=== PATIENT | male | born 1980 | race Caucasian/White ===

== ENCOUNTER 2018-09-12 22:55 | Observation (INO) | payer SELFPAY ==
[~2018-09-12 22:55] MED LIST: ISOVUE-370 76%-LOCM 1 ML ONE
[2018-09-12 23:17] LABS: #Basophils 0.1 thou/uL (0.0-0.2); #Eosinphils 0.2 thou/uL (0.0-0.7); #Lymphocytes 3.1 thou/uL (1.20-3.40); #Monocytes 0.4 thou/uL (0.11-0.59); #Neutrophils 3.4 thou/uL (1.40-6.50); %Basophils 1.5 % (0.0-1.0); %Eosinophils 2.4 % (0.0-10.0); %Lymphocytes 43.5 % (21.0-51.0); %Neutrophils 47.6 % (42.0-75.0); Hemoglobin 15.8 g/dL (14.0-18.0); Mean Corpuscular HGB CONC 33.6 g/dL (32.0-36.0); Mean Corpuscular Hemoglobin 33.4 pg (27.0-31.0); Mean Corpuscular Volume 99.4 fL (78.0-98.0); Mean Platelet Volume 5.4 fL (7.4-10.4); Platelet Count 322 thou/uL (130-400); RBC Distribution Width 11.4 % (11.5-14.5); Red Blood Cell (RBC) Count 4.73 mill/uL (4.70-6.10); White Blood Cell (WBC) Count 7.2 thou/uL (4.8-10.8)
[2018-09-12 23:24] LABS: INR-International Normal Ratio 0.9; PTT 32.1 SEC (22.9-36.1); Prothrombin Time 12.2 SEC (12.0-14.7)
[2018-09-12 23:37] LABS: ALT (SGPT) 45 U/L (8-55); AST (SGOT) 41 U/L (5-34); Albumin 4.5 g/dL (3.5-5.0); Alcohol 256 mg/dL (Less than 10); Alkaline Phosphatase 88 U/L (40-150); Anion Gap 15 mmol/L (10-20); BUN (Urea Nitrogen) Less than 4 mg/dL (8.9-20.6); Bilirubin, Total 0.4 mg/dL (0.2-1.2); Calc. Creatinine Clearance 0 mL/min (70-130); Carbon Dioxide 22 mmol/L (22-29); Chloride 96 mmol/L (98-107); Estimated GFR-MDRD Greater than 90; Globulin 2.6 g/dL (2.4-3.5); Glucose 95 mg/dL (70-105); Potassium 3.6 mmol/L (3.5-5.1); Protein, Total 7.1 g/dL (6.0-8.3); Sodium 129 mmol/L (136-145)
--- NOTE | 2018-09-12 23:37 | RAD ---
PORTABLE SUPINE CHEST: History: Trauma. Diffuse pain. FINDINGS: Heart size and mediastinum are within normal limits. The lungs are clear of any infiltrates. No rib f ractures identified. IMPRESSION: No active intrathoracic disease. POS: [facility]
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
[2018-09-13] MEDS ORDERED: Lorazepam 2 MG/ML VIAL ONE ×2 (01:09→01:56)
[2018-09-13] MEDS ORDERED: Ondansetron HCl/PF 4 MG/2 ML Vial IVP PRN (03:29)
[2018-09-13] MEDS ORDERED: Ondansetron ODT 4 MG TAB PO PRN (03:29)
[2018-09-13] MEDS ORDERED: Dextrose 50% Abboject 50 ML SYRINGE SLOW IVP PRN (03:29)
[2018-09-13] MEDS ORDERED: Dextrose 5% in Water 1,000 ML IV PRN (03:29)
[2018-09-13] MEDS ORDERED: Acetaminophen 500 MG TAB PO PRN (03:35)
[2018-09-13 03:56] LABS: #Basophils 0.1 thou/uL (0.0-0.2); #Eosinphils 0.2 thou/uL (0.0-0.7); #Lymphocytes 2.6 thou/uL (1.20-3.40); #Monocytes 0.5 thou/uL (0.11-0.59); #Neutrophils 3.6 thou/uL (1.40-6.50); %Basophils 1.4 % (0.0-1.0); %Eosinophils 3.2 % (0.0-10.0); %Lymphocytes 36.9 % (21.0-51.0); %Neutrophils 51.5 % (42.0-75.0); Hemoglobin 15.9 g/dL (14.0-18.0); Mean Corpuscular HGB CONC 34.4 g/dL (32.0-36.0); Mean Corpuscular Hemoglobin 34.2 pg (27.0-31.0); Mean Corpuscular Volume 99.4 fL (78.0-98.0); Mean Platelet Volume 5.6 fL (7.4-10.4); Platelet Count 334 thou/uL (130-400); RBC Distribution Width 11.5 % (11.5-14.5); Red Blood Cell (RBC) Count 4.65 mill/uL (4.70-6.10); White Blood Cell (WBC) Count 6.9 thou/uL (4.8-10.8)
[2018-09-13 04:17] LABS: Anion Gap 14 mmol/L (10-20); BUN (Urea Nitrogen) 4 mg/dL (8.9-20.6); Calc. Creatinine Clearance 0 mL/min (70-130); Calcium 9.1 mg/dL (7.8-10.44); Carbon Dioxide 26 mmol/L (22-29); Chloride 101 mmol/L (98-107); Estimated GFR-MDRD Greater than 90; Glucose 85 mg/dL (70-105); Potassium 3.9 mmol/L (3.5-5.1); Sodium 137 mmol/L (136-145)
[2018-09-13] MEDS: Sodium Chloride 0.9% 1,000 ML IV SCH ×2 (05:11→12:30)
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
[2018-09-13 07:57] VITALS: BMI 22.5
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
[2018-09-13] MEDS ORDERED: traMADol HCl 50 MG TAB PO PRN ×2 (13:06)
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
[2018-09-13] MEDS: Ibuprofen 800 MG TAB PO SCH ×2 (14:33→22:34)
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
[2018-09-13] MEDS: Acetaminophen 500 MG TAB PO SCH ×2 (17:26→22:34)
[2018-09-14] MEDS: Ibuprofen 800 MG TAB PO SCH ×3 (06:30→14:02)
[2018-09-14] MEDS: Acetaminophen 500 MG TAB PO SCH ×2 (06:30→11:53)
[2018-09-14 07:44] VITALS: BP 151/99; TEMP 97.7
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
== END 2018-09-14 15:30 | disposition home or self-care (01) ==
LOC: ERS 22:55 → SURG B 09-13 02:09
PROVIDERS: ADMIT Specialist; ATTEND Specialist
DX: G81.94 Hemiplegia, unspecified affecting left nondominant side (principal); F10.129 Alcohol abuse with intoxication, unspecified; F17.210 Nicotine dependence, cigarettes, uncomplicated; G89.11 Acute pain due to trauma; Y90.8 Blood alcohol level of 240 mg/100 ml or more; W55.22XA Struck by cow, initial encounter
CPT/HCPCS: 36415; 70450; 71045; 71260; 72125; 72141; 72146; 72148; 74177; 80048; 80053; 80307; 85025; 85610; 85730; 96361; 96374; 96376; 99406; G0378; G0390; G8978-GP-CJ; G8979-GP-CJ; G8980-GP-CJ; G8987-GO-CI; G8988-GO-CH; J2060